=== PATIENT | male | born 1975 | race Caucasian/White ===

== ENCOUNTER → 2016-07-01 | Day surgery (SDC) | payer OTHER ==
[~2016-07-01] MED LIST: NICOTINE TRANSD14 MG EXT; POTASSIUM CHLO10 ME1 PO; PROTONIX PO; THERAPEUTIC FOR1 TA1 PO
--- NOTE | ~2016-07-01 | OR ---
Unit #: [id number] #: [id number] Patient: LUC ARCHIBALD [id number] [address] [place], [place] [address] [id number] MR#: [id number] NAME: LUC ARCHIBALD ROOM: Date of Procedure: 07/01/2016 Admission Date: 07/01/2016 Surgeon: Celso Torres M.D. : 1975 Attending Physician: Celso Torres M.D. Referring Physician: Celso Torres M.D. OPERATIVE REPORT PREOPERATIVE DIAGNOSES The patient has history of cirrhosis of liver and esophageal variceal bleed in the recent past. He has come for elective upper endoscopy and possible esophageal variceal band ligation. POSTOPERATIVE DIAGNOSES 1. The patient had grade 3 esophageal varices in the mid and distal esophagus. Two of the varices were treated using rubber band ligation. 2. There was mild prepyloric antral gastritis. 3. Changes of portal hypertensive gastropathy involving the fundic mucosa. 4. Rest of the examination up to third part of duodenum was normal. RECOMMENDATIONS The patient will be followed up in the office in 3 to 4 months' time. He will continue taking pantoprazole 40 mg p.o. daily as well as nadolol 40 mg p.o. daily. SEDATION USED MAC. DESCRIPTION OF PROCEDURE Following detailed explanation of potential risks and complications of upper endoscopy, namely perforation, bleeding, and complications related to sedation, the patient was brought to the GI lab and laid in the left lateral decubitus position. Lubricated tip of the Olympus video upper endoscope was passed through the bite block into the proximal esophagus under direct vision. The entire esophageal mucosa was examined and the patient was noted to have grade 3 esophageal varices in mid and distal esophagus. There were no stigmata of recent bleed. The scope was then advanced into the gastric cavity and the latter was insufflated. Mucosa of the fundus, body, and antrum was examined and the patient was noted to have evidence of portal hypertensive gastropathy with classic reticulated appearance of the mucosa in the fundus and proximal body of the stomach. Distally in the prepyloric antral area, erythematous streaks and linear erosions were noted indicating antral gastritis. Pylorus was intubated with visualization of the normal duodenal bulb and second and third part of the duodenum. Upon withdrawal and retroflexion, incisura, cardia, and greater curve was examined and no additional findings were noted. The biopsies also obtained from the antrum for CLOtest. The scope was then withdrawn in the distal esophagus. The entire esophageal mucosa was examined all the way up to pharynx. No additional findings noted. Unit #: [id number] #: [id number] Patient: LUC ARCHIBALD A rapid shooter band ligator assembly was mounted on the scope tip and the patient was reintubated. Two of the varices were then treated with rubber band ligation just above the gastroesophageal junction. No bleeding was noted. Excellent hemostasis was achieved and photodocumentation was obtained. The scope was then withdrawn. The patient returned to the recovery area. He tolerated the procedure without any postprocedure complications. Dictated by... Nieves Chavarria/martin TD: 07/02/2016 04:59 JOB #: [id number] OPERATIVE REPORT X Celso Torres MD X PROCEDURE OPERATIVE NOTE
== END | disposition home or self-care (01) ==
LOC: COPS 07:51
DX: K74.60 Unspecified cirrhosis of liver (principal); I85.10 Secondary esophageal varices without bleeding; K29.70 Gastritis, unspecified, without bleeding; K76.6 Portal hypertension; K31.89 Other diseases of stomach and duodenum; F17.200 Nicotine dependence, unspecified, uncomplicated; E66.01 Morbid (severe) obesity due to excess calories; Z68.41 Body mass index [BMI] 40.0-44.9, adult
CPT/HCPCS: 87077; J2250